=== PATIENT | female | born 2000 | race Caucasian/White ===

== ENCOUNTER → 2020-06-29 14:16 | Outpatient (CLI) | payer BC, SELFPAY ==
[2020-06-29 15:39] LABS: Internal QC Validated? YES +Cl - CLEAR BKGD; Pregnancy, Serum, hCG Quali. NEGATIVE Negative
== END ==
PROVIDERS: Visit Provider Student in an Organized Health Care Education/Training Program
DX: N91.2 Amenorrhea, unspecified (principal)
CPT/HCPCS: 84703

== ENCOUNTER 2021-08-12 05:58 | Day surgery (SDC) | payer OTHER, SELFPAY ==
[2021-07-06 15:54] LABS: Hematocrit 42.8 % (37-47); Hemoglobin 14.1 g/dL (12.0-15.0); Mean Corp Hgb Conc 32.9 g/dL (32-36); Mean Corpuscular Hgb 28.7 pg (27.0-32.0); Mean Platelet Vol. 9.6 fl (6.2-12.0); Platelet Count 384 K/mm3 (150-450); RBC Distribution Width CV 12.1 % (11.6-14.6); RBC Distribution Width SD 38.9 fl (35.1-43.9); Red Blood Count 4.92 M/mm3 (4.2-5.4); White Blood Count 5.8 K/mm3 (4.4-11.0)
[2021-08-12] MEDS: Lactated Ringers 1,000 ML 100 ML IV ×2 (06:15→08:01)
[2021-08-12 06:36] LABS: Internal QC Validated? YES +Cl - CLEAR BKGD; Pregnancy, Urine Negative Negative
[2021-08-12 06:39] VITALS: BP 114/74; PULSE 78; RESP 16; TEMP 36.6; O2SAT 100; BMI 18.3
--- NOTE | 2021-08-12 07:30 | TISS_PTH ---
PATIENT: GALLO RAM [place] [facility] [place][id number] AGE/SX: 21/F ROOM: RE08/12/[address]: Dr. Adriana Aguirre MD : 2000 BED: DIS: 08/12/2021 SPEC #: [id number] RECD: 08/12/21 12:47 STATUS: MAGDALENA REKarina #: [id number] GUERA: 08/12/21 07:[address]: Adriana Hill DEPT: SURGICAL PATHOLOGY RECD BY: Arlene Davis ENTERED: 08/13/21 08:44 SP TYPE: Tissue Bx OT DR: Dr. Jess Beck MD Tissues: A - Ovarian follicle, NOS B - Sacral region Procedures: Surgery Specimen Level IV HEADER OPERATION: Diagnostic laparoscopy, surgical treatment of endometriosis PRE-OP DIAGNOSIS: Dysmenorrhea TISSUE SUBMITTED: A ? Right ovarian fossa, B ? Left uterosacral MICROSCOPIC DIAGNOSIS A. Right ovarian fossa, biopsy: Consistent with endometriosis. B. Left uterosacral, biopsy: Suggestive of endometriosis. CRISTIAN:shmuel 08/16/2021 COMMENT Clinical correlation and appropriate follow up are necessary. MICROSCOPIC DESCRIPTION Slides are reviewed. GROSS DESCRIPTION A - Received in fixative is one container labeled with the patient's name and designated right ovarian fossa. The specimen consists of a piece of soft tissue measuring 3 x 0.3 x 0.1 cm. The specimen is sectioned and submitted entirely in one cassette. B - Received in fixative is one container labeled with the patient's name and designated left uterosacral. The specimen consists of a piece of doan-pink soft tissue measuring 1 x 0.5 x 0.2 cm. The entire specimen is submitted in one cassette. / CRISTIAN:shmuel 08/13/21 TC:5 CPT: 55706 x2
--- NOTE | 2021-08-12 07:39 | PCM.HP.BLA ---
History and Physical Date of Admission: 08/12/21 Surgical History and Physical Date: 08/12/2021 Name: GALLO RAM Age: 21 Date of : 2000 Gallo Ram, a 21 year old female 0 0 0 0 0, presents for Diagnostic laparoscopy, surgical treatment of endometriosis on August 12, 2021 at 7:30. -- Gallo has a history of severe dysmenorrhea and dyspareunia with periods for several years concerning for endometriosis. MEDICATIONS HISTORY: Current medications prescribed by our practice are: 1. ibuprofen 600 mg tablet, One pill by mouth every six hours during menses 2. Zofran 4 mg tablet, One pill by mouth three times a day prn nausea ALLERGIES: No Known Allergies Infections - Chicken pox Illnesses - no serious past illnesses Accidents - None Hospitalizations - see surgery Review of Systems: GENERAL - Denies fever, or chills SKIN - Denies skin changes EYES - Denies visual changes EARS - Denies difficulty hearing NOSE - Denies nasal congestion or bleeding MOUTH - Denies sore throat or difficulty swallowing NECK - Denies pain or swelling RESPIRATORY - Denies shortness of breath or wheezing CARDIOVASCULAR - Denies palpitations or chest pain GASTROINTESTINAL - Denies nausea, vomiting, diarrhea, constipation GENITOURINARY - Denies dysuria, frequency of urination, incontinence of urine MUSCULOSKELETAL - Denies joint or muscle pain NEUROLOGICAL - Denies localized numbness or weakness PSYCHIATRIC - Denies depression or anxiety ENDOCRINE - Denies heat or cold intolerance, weight loss or gain HEMATO-IMMUNOLOGIC - Denies excesive bleeding with cuts SOCIAL HISTORY: Alcohol Use - None Smoking - Never Diet - no special diet Lifestyle - moderate stress lifestyle Exercise - very active Seat Belt Use - always 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 Illicit Drug Use - None Sexual Activity - Residence - lives with Hours Worked - seasonal Spouse-Sig Other Name - Alex Spouse-Sig Other Occupation - [employer] Spouse-Sig Other Phone No - [phone] Control - condoms FAMILY HISTORY: MENSTRUAL HISTORY: LMP Known?- DefiniteAmount/Duration - 4 to 7 days, Regularity - Regular, Frequency - monthly days, LMP - 06/12/21, Age Onset Menarche - 12 PAST PREGNANCIES: Total Pregnancies - 0; Full Term Pregnancies - 0; Premature - 0; Abortions, Induced - 0; Abortions, Spontaneous - 0; Ectopics - 0; Multiple Births - 0; Living Children - 0 SURGICAL HISTORY: 2003 T and A ; - PHYSICAL EXAM BP- 96/70 Sitting, Right arm, regular cuff Temp- 98.3 Taken Orally Weight- 117.24393 lbs Height- 66.5 inch BMI:[id number] CONSTITUTIONAL - NAD, well nourished, and well developed SKIN - No rash, lesions, or ulcers HEENT - normocephalic, atraumatic, sclerae anicteric LUNGS - normal respiratory rate and rhythm ABDOMEN - Without hepatosplenomegaly, distention, masses, rebound, or guarding; normal bowel sounds; no hernias NEUROLOGICAL - normal gait, normal balance, normal motor PSYCHIATRIC - A and O to time, place, person, mood and affect External Genitial Vagina - non-tender without lesions Urethra/Urethral Meatus - non-tender Bladder - non-tender Vagina - vaginal claros are pink and moist without loss of rugae and no evidence of atropy Cervix - without cervical motion tenderness and has normal size and features without evident lesions Uterus - 5-6 cm in size, mobile and nontender Adnexa - clear without massess or tenderness ASSESSMENT/PLAN: 1. Dysmenorrhea, Unspecified -Consents signed and reviewed -No interval change in PMH -Proceed as planned
--- NOTE | 2021-08-12 09:11 | PCM.OPRPT ---
Problems Associated Problem List Diagnoses (1) Dysmenorrhea: (2) Endometriosis: Report of Operation Date of Procedure: 08/12/21 Pre-Operative Diagnosis: 1. Severe dysmenorrhea 2. Chronic pelvic pain Post-Operative Diagnosis: 1. Severe dysmenorrhea 2. Chronic pelvic pain 3. Endometriosis Surgery/Procedure Performed:: 1. Diagnostic laparoscopy, 2. Peritoneal biopsies for treatment of endometriosis 3. Adhesiolysis Description of Surgical Findings:: Lesions consists suspicious for endometriosis at the left uterosacral ligament. The right ovarian fossa with a Master's window. Normal-appearing tubes and ovaries. Uterus with small subcentimeter subserosal fibroid. Surgeon: Adriana Hill slice cutting machine operator: Campbell Ramos Type of Anesthesia: General and Local Anesthesiologist: Estela Weir Specimen's removed: 1. Right ovarian fossa peritoneum 2. Left uterosacral peritoneum. Estimated Blood Loss (mL): 10 Fluids Replaced: 1600 mL Description of Procedure: 21-year-old nulligravida with a history of chronic severe dysmenorrhea and dyspareunia suspicious for endometriosis presents for diagnostic laparoscopy and surgical treatment of endometriosis. Procedural risks, benefits, indications and alternatives were reviewed and patient desired to proceed. Informed consent was obtained. Procedure: The patient was brought to the operating room and signed and performed. She was induced under general anesthesia and intubated. She was positioned into dorsal lithotomy and the arms were tucked at her sides. An examination under anesthesia was performed. The perineum and abdomen were prepped and draped in sterile fashion. Straight catheterization of the bladder was performed. The patient was placed in the high lithotomy and a speculum placed vaginally. The cervix was grasped using single-tooth tenaculum and uterus sounded to 8 cm. A ZUMI uterine manipulator was placed and secured. The cysts tenaculum was removed and speculum removed from the vagina. The patient was placed into low lithotomy and attention turned to the abdomen. An inferior umbilical incision was made and a varies needle introduced into the abdominal cavity with successful hanging drop test and no aspirate. Entry pressures were 3 mmHg. The abdomen was insufflated to 15 mmHg. The Veress needle was removed and a 5 mm port placed under laparoscopic guidance confirming entry into the abdominal cavity. A left lower quadrant tap block was performed using half percent Marcaine. Incision was made in the left lower quadrant under transillumination and 5 mm port also introduced. Patient was placed into Trendelenburg and survey of the abdomen and pelvis were performed. There were filmy adhesions along the right colon. The appendix was normal in appearance. There were lesions suspicious for endometriosis in the right ovarian fossa as well as the left uterosacral ligament. A right lower quadrant tap block was performed incision made and 5 mm port introduced at the site. A suprapubic incision was also placed following administration of local Marcaine also. Filmy lesions along the right colon were incised using the laparoscopic katlin. The peritoneum of the Masters window was incised and sharply and bluntly dissected from the underlying tissue for peritoneal biopsy, the right ureter was identified throughout a portion of the procedure.. Arteriolar bleeding was controlled using monopolar electrocoagulation with good hemostasis. Attention was turned to the left uterosacral ligament. The left ureter was identified and the associated peritoneum having endometriotic lesion was excised using monopolar katlin, blunt and sharp dissection. The abdomen was desufflated and ports removed. The incisions were closed using 4-0 Monocryl by the [facility] under my supervision. Steri-Strips and OpSite's were placed at the sites. I returned to the perineum. The ZUMI uterine manipulator was removed and the tenaculum site had been hemostatic. The procedure was complete. Patient was placed into dorsal supine position, awakened, extubated and transferred to the recovery room without complication. Complications None Admit VTE Documentation VTE Present on Admission: No VTE Mechan Device Prophylaxis: SCD's VTE Pharm Prophylaxis ordered?: No Reason prophylaxis not ordered:: Procedure Not Indicated
[2021-08-12] MEDS: Bupivacaine Mpf 0.5% 30 ML VIAL (09:16)
[2021-08-12 09:30] VITALS: BP 114/74; BP 114/84; PULSE 85; RESP 16; TEMP 36.5; O2SAT 98
[2021-08-12 09:45] VITALS: BP 107/72; BP 114/74; PULSE 69; RESP 16; O2SAT 100
[2021-08-12 10:00] VITALS: BP 102/71; BP 114/74; PULSE 62; RESP 16; O2SAT 100
--- NOTE | 2021-08-12 10:07 | PCM.DC ---
Discharge Instructions Diet Discharge Diet: No restrictions Activity Discharge Activity: Return to Normal Activity May resume sexual activity in: - (2-4 weeks) Lifting Restrictions: 10 lb Dressing / Incision Call your doctor if your incision/area has: Continuous Slow Oozing, Sudden Increased Bleeding, Increased Pain/ Swelling, Increased Redness, Foul Smelling Discharge and Swelling at the incision site Call your doctor if you observe: Fever of 101 or Higher, Inability to urinate, Inability to have a bowel movement, Shortness of breath, Chest pain, Calf discomfort and Uncontrolled pain Remove Dressing in: 1 day Cleanse incision/area with: Soap & Water Follow Up Care Please Follow Up With: Adriana Hill MD When: 2-4 weeks Test Results: Test results from this visit will be discussed in further detail at your follow-up appointment, if applicable. Discharge Plan Admission Primary Reason for Your Visit: Laparoscopy for Endometriosis Attending Provider: Adriana Hill Primary Care Provider: Jess Beck Instructions Patient Instructions: Endometriosis Lap Tx Dc Discharge Orders/Prescriptions Prescriptions: New hydrocodone-acetaminophen 5-325 mg Tablet 1 tab PO Q6H PRN PRN (Reason: severe pain (scale score 7-10)) 7 Days Qty: 20 RF: 0 Continued ascorbic acid (vitamin C) [Vitamin C] 500 mg Capsule, Extended Release 500 mg PO DAILY RF: 0 Discontinued ibuprofen 200 mg Capsule 200 mg PO Q6H PRN (Reason: Pain) RF: 0 Referrals / Follow Up: Jess Beck MD [Primary Care Provider] - Disposition Disposition (needs filled in before D/C Order can be placed): Home, Self Care
[2021-08-12 10:15] VITALS: BP 114/74; BP 98/63; PULSE 81; RESP 16; TEMP 36.7; O2SAT 100
[2021-08-12 11:23] VITALS: BP 101/66; BP 114/74; PULSE 93; RESP 16; TEMP 36.6; O2SAT 99
== END 2021-08-12 11:39 ==
LOC: SDC 06:00 → AC 06:00
PROVIDERS: Anesthesiology; PCP Family Medicine; Referring Provider Obstetrics & Gynecology; Visit Provider Obstetrics & Gynecology
PROC: (CPT 49320; principal; 2021-08-12 07:15)
DX: N80.9 Endometriosis, unspecified (principal); D25.2 Subserosal leiomyoma of uterus; Z20.822 Contact with and (suspected) exposure to COVID-19; N94.6 Dysmenorrhea, unspecified; G89.29 Other chronic pain; R10.2 Pelvic and perineal pain; Z79.1 Long term (current) use of non-steroidal anti-inflammatories (NSAID); Z79.899 Other long term (current) drug therapy
CPT/HCPCS: 49321; 58662; 36415; 81025; 85027; 86850; 86900; 86901; 87426; 88305; C9803; J7120; J2405